=== PATIENT | male | born 1940 | race Caucasian/White ===

== ENCOUNTER 2020-11-11 07:00 | Outpatient (RCR) | payer MEDICARE ==
[~2020-11-11 07:00] MED LIST: ATENOLOL/CHLOR1 EACH PO; MULTIVITAMIN; Z.0.ASPIRIN325 MG PO; Z.0.DIAZEPAM5 MG PO; Z.0.KLOR-CON 88 MEQ PO; Z.0.LEVOTHYROXINE75 PO; Z.0.LOSARTAN POTAS10 PO; Z.0.OMEPRAZOLE20 M1 PO; Z.0.OXYBUTYNIN CHLOR PO; Z.0.SIMVASTATIN40 MG PO; Z.0.TERAZOSIN HCL10 PO; Z.0.VITAMIN C500 M1 PO; Z.1.FISH OIL 1,2001 PO; [UNRECOGNIZED DRUG - CODE]
== END 2020-11-19 ==
LOC: PT 07:00
PROVIDERS: ATTEND Specialist
DX: M17.11 Unilateral primary osteoarthritis, right knee (principal); Z96.652 Presence of left artificial knee joint